=== PATIENT | male | born 1935 | race Two or more races ===

== ENCOUNTER 2021-01-20 18:32 | Inpatient (IN) | payer MEDICARE, OTHER ==
[~2021-01-20] VITALS: Ht 172.7 cm; Wt 70.3 kg
[2021-01-20] MEDS ORDERED: CEPH500C2 PO (18:51)
[2021-01-20] MEDS ORDERED: HYDR-4209 PO (18:52)
--- NOTE | 2021-01-20 18:56 | NUR ---
pending MD evaluation, Aox2-3, some British, mostly German-speaking, for medical clearance by our ER doctor for Mental health psych admission
--- NOTE | 2021-01-20 19:01 | NUR ---
Medically cleared by Dr Riley for sch admission, pending MHU bed and nurse assignment@this time, endorsed to MARLO Jackson and discharge door operator Adrian
--- NOTE | 2021-01-20 20:00 | NUR ---
Report given to Uriel SELLERS U.
[2021-01-20] MEDS ORDERED: BLOOD SUGAR DIAGNOSTIC 1 EACH STRIP VI ONE (20:15)
[2021-01-20] MEDS ORDERED: MAGNESIUM HYDROXIDE 30 ML LIQUID UDC PO PRN (20:15)
[2021-01-20] MEDS ORDERED: HYDROCODONE/APAP 5-325MG TABLET PO PRN (20:15)
[2021-01-20] MEDS ORDERED: ACETAMINOPHEN 325 MG TABLET PO PRN (20:15)
[2021-01-20] MEDS ORDERED: MAG HYDROX/AL HYDROX/SIMETH 30 ML LIQUID UDC PO PRN (20:15)
[2021-01-20] MEDS ORDERED: HYDR25TA4 PO (22:10)
[2021-01-20] MEDS ORDERED: METO25TA6 PO (22:10)
[2021-01-20] MEDS: HYDROCODONE/APAP 5-325MG TABLET PO PRN (22:21)
[2021-01-20] MEDS: CEphaleXIN 500 MG CAPSULE PO SCH (22:22)
[2021-01-20 22:44] VITALS: BP 177/89
[2021-01-20] MEDS ORDERED: hydrALAZINE HCL 10 MG TABLET PO ONE (22:45)
[2021-01-21] MEDS ORDERED: hydrALAZINE HCL 10 MG TABLET ONE (00:31)
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
--- NOTE | 2021-01-21 06:00 | NUR ---
Slept 6.5 hours.
[2021-01-21] MEDS: CEphaleXIN 500 MG CAPSULE PO SCH ×2 (06:32→11:42)
[2021-01-21 07:30] VITALS: BP 150/80
[2021-01-21 08:54] LABS: BILIRUBIN,TOTAL 0.6 mg/dL (0.2-1.0); POTASSIUM 4.4 mmol/L (3.5-5.1); TOTAL PROTEIN, SERUM 6.6 g/dL (6.4-8.2)
--- NOTE | 2021-01-21 10:45 | NUR ---
Gps/Oiling Machine Operator- Alert , oriented x 2, interacts when engaged, ambulated to the bathroom with front wheel walker, redirectable , safety reviewed, encouraged participation in his group tx Family was called and was informed of his admission to MHU
[2021-01-21] MEDS: DIVALPROEX SPRINKLE 125 MG CAP.SPRINK PO SCH ×3 (11:42→17:08)
[2021-01-21] MEDS: risperiDONE 0.5 MG TABLET PO SCH ×2 (11:42→20:51)
--- NOTE | 2021-01-21 11:42 | NUR ---
Gps/Civil Celebrant- Patient complained of numbness to both hand, more to his left hand, poor hand land surveying survey worker, claimed all r/t to previous spine surgery, Limited rom. left knee from previous surgery r/t arthritis. Righr oquendo with abrasion, reddened, with scab claimed r/t to fall, . Safety reviewed, emphasized,
[2021-01-21] MEDS: HYDROCODONE/APAP 5-325MG TABLET PO PRN (12:00)
--- NOTE | 2021-01-21 15:05 | NUR ---
Gps/Fingerprint Expert- Ambulated by P.T. using FWW, cooperative, participated fairly well, had been cooperative wth the staff
[2021-01-21 16:00] VITALS: BP 126/57
[2021-01-21 20:00] VITALS: BP 120/60
--- NOTE | 2021-01-22 07:19 | NUR ---
PATIENT SLEPT WELL 8.30 HRS, PATIENT COOPERATIVE WITH MEDICATION AND CARE, CONT TO MONITOR.
[2021-01-22 07:30] VITALS: BP 141/71
[2021-01-22] MEDS: DIVALPROEX SPRINKLE 125 MG CAP.SPRINK PO SCH ×3 (08:34→16:26)
[2021-01-22] MEDS: risperiDONE 0.5 MG TABLET PO SCH ×2 (08:34→20:05)
[2021-01-22] MEDS: HYDROCHLOROTHIAZIDE 25 MG TABLET PO SCH (08:35)
[2021-01-22] MEDS: METOPROLOL TARTRATE 25 MG TABLET PO SCH (08:35)
[2021-01-22] MEDS: HYDROCODONE/APAP 5-325MG TABLET PO PRN (08:48)
--- NOTE | 2021-01-22 13:30 | NUR ---
Gps/Proof Tester- Patient stated, " i hope you are not given me medications that will keep me her longer" . Stayed in the dinning room during his lunch. Adequate relief from neck, shoulders, back pain after [place] 1 tab. po , per patient he is constantly in pain .
--- NOTE | 2021-01-22 15:18 | NUR ---
Gps/Executive Director Global Brand Marketing- Patient's daughter ,Tracey called wants to get information about her father, and wants to know when is he going to be discharged, claimed she has the DPOA , instructed to fax papers of being the DPOA, will give message to Dr Cadena to call her.
[2021-01-22 16:00] VITALS: BP 100/52
--- NOTE | 2021-01-22 16:00 | NUR ---
Gps/Plate Painter -Showered by ADMINISTRATIVE ASST min assist. Right oquendo slightly reddened, previous abrasion from home per pt. kept dry/clean
[2021-01-22 20:00] VITALS: BP 115/53
--- NOTE | 2021-01-23 06:10 | NUR ---
GPS: Pt.slept 9.30 last night. Assisted to the bathroom x2 last night for elimination purposes. Safe environment provided. No increased agitation noted. Needs attended. Will continue to monitor.
[2021-01-23 08:33] VITALS: BP 121/66
[2021-01-23] MEDS: HYDROCHLOROTHIAZIDE 25 MG TABLET PO SCH (08:51)
[2021-01-23] MEDS: risperiDONE 0.5 MG TABLET PO SCH ×2 (08:51→20:08)
[2021-01-23] MEDS: DIVALPROEX SPRINKLE 125 MG CAP.SPRINK PO SCH ×3 (08:51→17:03)
[2021-01-23] MEDS: METOPROLOL TARTRATE 25 MG TABLET PO SCH (08:52)
--- NOTE | 2021-01-23 11:18 | NUR ---
Clinical Drain Layer Note Patient was alert and oriented times 2, but was confused about incidents leading him to being hospitalized. SW meet with patient to discuss treatment planning and discharge. Patient was not able to provided SW with information due to disorganized thought patterns. Patient unable to sign treatment plan due to disorganized thought process. SW will follow up with patient's daughter.
--- NOTE | 2021-01-23 11:21 | NUR ---
SW Family Contact RACHEL called and left a voicemail for patient's daughter, Tracey Keating [phone] to discuss treatment plan and discharge planning. RACHEL will continue to follow up with patient's daughter.
[2021-01-23 16:18] VITALS: BP 100/60
[2021-01-23 20:00] VITALS: BP 119/58
[2021-01-24 07:30] VITALS: BP 121/80
[2021-01-24] MEDS: DIVALPROEX SPRINKLE 125 MG CAP.SPRINK PO SCH ×3 (08:49→16:30)
[2021-01-24] MEDS: risperiDONE 0.5 MG TABLET PO SCH (08:49)
[2021-01-24] MEDS: METOPROLOL TARTRATE 25 MG TABLET PO SCH (08:50)
[2021-01-24] MEDS: HYDROCHLOROTHIAZIDE 25 MG TABLET PO SCH (08:50)
[2021-01-24 15:21] VITALS: BP 116/68
[2021-01-24] MEDS: risperiDONE 0.25 MG TABLET PO SCH (16:30)
--- NOTE | 2021-01-24 16:41 | NUR ---
GPS: Nursing Notes: Destructive Behavior to Others: Patient is awake and responding to his name, cooperative with nursing care, compliant with his medications, believes that we are given him medications to keep him longer here, redirected and reoriented during shift, believes his family is trying to keep him away from home, no episode so aggressive behavior, A/Ox2, disoriented to time and situation, refusing to participate in therapeutic groups, ambulatory with fww, unable to formulate a viable plan for self care, continue to monitor for safety, paranoid at times, believes that his family is against him, continue with treatment plan.
[2021-01-24] MEDS ORDERED: risperiDONE 0.5 MG TABLET PO SCH (17:00)
[2021-01-24 20:16] VITALS: BP 105/59
[2021-01-24] MEDS: TEMAZEPAM 7.5 MG CAPSULE PO PRN (22:32)
[2021-01-25 07:30] VITALS: BP 116/73
[2021-01-25] MEDS: DIVALPROEX SPRINKLE 125 MG CAP.SPRINK PO SCH ×3 (08:48→17:39)
[2021-01-25] MEDS: METOPROLOL TARTRATE 25 MG TABLET PO SCH (08:51)
[2021-01-25] MEDS: HYDROCHLOROTHIAZIDE 25 MG TABLET PO SCH (08:51)
[2021-01-25] MEDS: risperiDONE 0.25 MG TABLET PO SCH ×3 (09:00→17:39)
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
[2021-01-25 16:00] VITALS: BP 151/73
--- NOTE | 2021-01-25 16:55 | NUR ---
GPS: PEDRO, ' S CP NO. [phone] CALLED THIS AFTERNOON TALKED TO PT. PT MENTIONING THAT HE'S TO BE DISCHARGE TODAY. PT INFORMED NOT TODAY.
--- NOTE | 2021-01-25 19:05 | NUR ---
GPS: SPOKE WITH ESTEFANY (DAUGHTER) ABOUT PT CONDITION AND PT TELLING THEM THAT PT WILL BE DISCHARGE TOMORROW. INFORMED DAUGHTER THAT PT DOESNT HAVE A SCHEDULE OF DISCHARGE. DAUGHTER WOULD LIKE TO SPEAK WITH PSYCHIATRIST. PER DAUGHTER, PT GETS MAD OF HIS WIS OVER THE PHONE.
[2021-01-25 20:16] VITALS: BP 142/58
[2021-01-25] MEDS: HYDROCODONE/APAP 5-325MG TABLET PO PRN (21:17)
[2021-01-25] MEDS: TEMAZEPAM 7.5 MG CAPSULE PO PRN (22:18)
[2021-01-26] MEDS: CLONAZEPAM 0.5 MG TABLET PO PRN (00:09)
--- NOTE | 2021-01-26 01:00 | NUR ---
Received to care, lying in bed, pleasant upon approach. compliant with medications, and staff direction. PRN restoril was given at 2218. Patient was sleeping intermittently afterwards, and came UP to the desk with his walker, at 0009, asking for something to help him to relax. He was then given PRN klonopin, and he was asleep, by 0030. as of now, he remains asleep. no distress noted.
--- NOTE | 2021-01-26 06:02 | NUR ---
slept 4.0 hours. was restless, even with PRN medications, given. continues to sleep, intermittently. no distress noted.
[2021-01-26 07:54] VITALS: BP 129/89
[2021-01-26] MEDS: risperiDONE 0.25 MG TABLET PO SCH ×3 (08:32→17:24)
[2021-01-26] MEDS: DIVALPROEX SPRINKLE 125 MG CAP.SPRINK PO SCH ×3 (08:32→17:24)
[2021-01-26] MEDS: HYDROCHLOROTHIAZIDE 25 MG TABLET PO SCH (08:32)
[2021-01-26] MEDS: METOPROLOL TARTRATE 25 MG TABLET PO SCH (08:32)
--- NOTE | 2021-01-26 10:54 | NUR ---
Received at 0700H. He is in bed, cooperative with care. compliant with medication. No distress identified. kept safe. Will endorse to the other nurse for continuity of care.
--- NOTE | 2021-01-26 12:59 | NUR ---
GPS: PT RIGHTS SPOKE WITH THE PT AND TRANSLATED TO DANISH BY RACHEL KIM. COOPERATIVE WITH CARE. TAKES MEDICATION AND TOLERATED WELL. WITH SIGN OF CONFUSION AND FORGETFUL.
--- NOTE | 2021-01-26 14:13 | NUR ---
GPS: PT HAD 14 DAY HOLD HEARING AND PT WILL BE ON HOLD FOR GD. PT COOPERATIVE AND COMPLIANT WITH MEDS.
--- NOTE | 2021-01-26 15:32 | NUR ---
GPS: CALLED PT NEUROLOGIST FAYE TRIMBLE RE: PT MRI BRAIN RESULT PER DR DUBON NEEDS TO BE ADDRESS TO NEUROLOGIST DUE TO ABNORMAL FINDING. CALLED MD OFFICE AND TALKED WITH RED, LAMINATOR HAND. PER RED, SHE WILL COMMUNICATE IT TO MD. PER JAMES WYLIE, SHE'S NOT ON TODAY.
[2021-01-26 16:16] VITALS: BP 106/66
[2021-01-26 20:00] VITALS: BP 115/65
[2021-01-26] MEDS: HYDROCODONE/APAP 5-325MG TABLET PO PRN (21:27)
[2021-01-26] MEDS: TEMAZEPAM 7.5 MG CAPSULE PO PRN (22:49)
--- NOTE | 2021-01-27 00:19 | NUR ---
received to care, in bed, pleasant upon approach. was restless at times. PRN norco was given at 2126 for lower back and left shoulder pain, which got some relief, from the med. he remained awake and restless. PRN restoril was given at 2248, for insomnia. he was asleep, by 230, but woke up intermittently. as of now, he appears to be asleep. no distress noted. will continue to monitor closely.
--- NOTE | 2021-01-27 06:00 | NUR ---
slept 6.0 hours. no distress noted.
[2021-01-27 07:30] VITALS: BP 135/79
--- NOTE | 2021-01-27 07:54 | NUR ---
GPS: FALL INCIDENT PT FOUND SITTING ON THE BATHROOM FLOOR. ASSESSMENT DONE WITH NO INJURIES NOTED. PT STATED THAT HE LEANED ON THE BATHROOM DOOR AND THOUGHT IT WAS SECURE. DENIES ANY PAIN OR DISCOMFORT. PT ALERT AND ORIENTED X3. PT WITH WALKER WHEN IT HAPPENED. ENCOURAGE PT TO ASK FOR ASSISTANCE IF NEEDED. VS WITHIN NORMAL LIMITS. BP 135/79 T 98.4 P 79 R 18 O2SAT 98%
[2021-01-27] MEDS: METOPROLOL TARTRATE 25 MG TABLET PO SCH (08:26)
[2021-01-27] MEDS: risperiDONE 0.25 MG TABLET PO SCH ×2 (08:26→12:02)
[2021-01-27] MEDS: DIVALPROEX SPRINKLE 125 MG CAP.SPRINK PO SCH ×3 (08:26→16:23)
[2021-01-27] MEDS: HYDROCHLOROTHIAZIDE 25 MG TABLET PO SCH (08:27)
[2021-01-27 16:04] VITALS: BP 104/51
[2021-01-27] MEDS: risperiDONE 0.5 MG TABLET PO SCH (16:24)
--- NOTE | 2021-01-27 16:24 | NUR ---
SW Family Contact RACHEL spoke with daughter Tracey Velasquez [phone], to discuss her concerns with patient's discharge. Discussed with Ms. Keating passing along her message to Dr. Cadena. RACHEL later informed daughter of patient being discharged on Saturday and coordinated picking machine operator helper at 11AM. Ms. Keating stated that her brother Cornell Patterson [phone] will be picking him up. RACHEL provided Ms. Keating with information on patient's psychiatrist appointment on 01/31/2021 with [facility] [place] [address] ([phone]).
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
[2021-01-27 20:08] VITALS: BP 120/55
[2021-01-27] MEDS: HYDROCODONE/APAP 5-325MG TABLET PO PRN (20:53)
[2021-01-27] MEDS: TEMAZEPAM 7.5 MG CAPSULE PO PRN (22:14)
--- NOTE | 2021-01-28 04:03 | NUR ---
Received to care, in bed, pleasant upon approach, restless at times. PRN norco was given at 2052 for lower back and left shoulder pain, with good results. He s. PRN restoril was given at 2213, for insomnia. he was asleep, by 2329, but woke up intermittently, over the course of the night. As of now, he appears to be asleep. no distress noted. will continue to monitor closely.
--- NOTE | 2021-01-28 06:59 | NUR ---
slept 5.75 hours.
[2021-01-28 07:41] VITALS: BP 147/68
[2021-01-28] MEDS: DIVALPROEX SPRINKLE 125 MG CAP.SPRINK PO SCH ×3 (08:54→17:09)
[2021-01-28] MEDS: risperiDONE 0.5 MG TABLET PO SCH ×2 (08:55→17:09)
[2021-01-28] MEDS: METOPROLOL TARTRATE 25 MG TABLET PO SCH (08:55)
[2021-01-28] MEDS: HYDROCHLOROTHIAZIDE 25 MG TABLET PO SCH (08:56)
--- NOTE | 2021-01-28 09:28 | NUR ---
GPS: RECEIVED PT ON BED. PT HAVING BREAKFAST AND TOOK MEDICATION AND TOLERATED WELL. DENIES ANY PAIN OR DISCOMFORT. PT ALERT/ ORIENTED X3. WITH EPISODE OF FORGETFULNESS.
[2021-01-28 16:16] VITALS: BP 115/58
[2021-01-28 20:14] VITALS: BP 136/64
[2021-01-29] MEDS: TEMAZEPAM 7.5 MG CAPSULE PO PRN (00:01)
[2021-01-29] MEDS: HYDROCODONE/APAP 5-325MG TABLET PO PRN (03:24)
[2021-01-29] MEDS: CLONAZEPAM 0.5 MG TABLET PO PRN (03:24)
[2021-01-29 08:01] VITALS: BP 131/47
[2021-01-29] MEDS: risperiDONE 0.5 MG TABLET PO SCH ×2 (08:27→17:22)
[2021-01-29] MEDS: METOPROLOL TARTRATE 25 MG TABLET PO SCH (08:28)
[2021-01-29] MEDS: HYDROCHLOROTHIAZIDE 25 MG TABLET PO SCH (08:29)
[2021-01-29] MEDS: DIVALPROEX SPRINKLE 125 MG CAP.SPRINK PO SCH ×3 (08:34→17:23)
[2021-01-29 16:48] VITALS: BP 122/69
--- NOTE | 2021-01-29 18:15 | NUR ---
patient is cooperative with care. compliant with medication.denies any pain or discomfort at all time. encouraged to attendance in group activity. aware of discharge plan tomorrow denies any SI/HI.
[2021-01-29 20:14] VITALS: BP 126/56
[2021-01-30 07:47] VITALS: BP 104/55
--- NOTE | 2021-01-30 08:17 | NUR ---
Discharge Note: Pt will be discharged home [address] [place] [address] ([phone]) with his daughter. Pts daughter, Tracey Keating , has been informed of discharge plan. Pts son, Cornell Patterson [phone] will be picking him up at 11AM. Pt is alert and oriented x2. Patient denies suicidal or homicidal ideation. Patient presents with appropriate mood and congruent affect. Patient will follow-up with Dr. Denis and [facility]. Pt has been provided mental health resource and information to follow-up with [address] [address] ([phone]). Pts daughter, Tracey Keating aware and agreeable with discharge plan.
[2021-01-30 09:00] VITALS: BP 104/55
[2021-01-30] MEDS: METOPROLOL TARTRATE 25 MG TABLET PO SCH (09:00)
[2021-01-30] MEDS: HYDROCHLOROTHIAZIDE 25 MG TABLET PO SCH (09:00)
[2021-01-30] MEDS: risperiDONE 0.5 MG TABLET PO SCH (09:14)
[2021-01-30] MEDS: DIVALPROEX SPRINKLE 125 MG CAP.SPRINK PO SCH (09:15)
--- NOTE | 2021-01-30 12:30 | NUR ---
Pt discharged home today with his daughter.patient vital sign stable ,denies any pain or discomfort. Patient presents with appropriate mood and congruent affect. Patient will follow-up with Dr. Densi and [facility]. Pt has been provided mental health resource and information to follow-up with [facility] .all personal belonging returned to patient
== END 2021-01-30 12:30 | disposition home or self-care (01) | DRG 885 ==
LOC: ER 18:35 → GPS 20:11
PROVIDERS: ADMIT Psychiatry & Neurology Psychiatry; ATTEND Nurse Practitioner Acute Care
DX: F39 Unspecified mood [affective] disorder (principal); F02.80 Dementia in other diseases classified elsewhere, unspecified severity, without behavioral disturbance, psychotic disturbance, mood disturbance, and anxiety; G30.9 Alzheimer's disease, unspecified; E11.42 Type 2 diabetes mellitus with diabetic polyneuropathy; F29 Unspecified psychosis not due to a substance or known physiological condition; I10 Essential (primary) hypertension; G89.29 Other chronic pain; M20.41 Other hammer toe(s) (acquired), right foot; M20.42 Other hammer toe(s) (acquired), left foot; Z20.822 Contact with and (suspected) exposure to COVID-19; Z86.73 Personal history of transient ischemic attack (TIA), and cerebral infarction without residual deficits; M79.661 Pain in right lower leg; Z91.81 History of falling; S81.801A Unspecified open wound, right lower leg, initial encounter; X58.XXXA Exposure to other specified factors, initial encounter; Y93.9 Activity, unspecified; F23 Brief psychotic disorder; Y92.009 Unspecified place in unspecified non-institutional (private) residence as the place of occurrence of the external cause; G93.89 Other specified disorders of brain
CPT/HCPCS: 36415; 70551; 97161; A4663